=== PATIENT | female | born 1970 | race Caucasian/White ===

== ENCOUNTER 2017-04-17 09:00 | Day surgery (SDC) | payer OTHER ==
[~2017-04-17] VITALS: Ht 165.1 cm; Wt 90.7 kg
[~2017-04-17 09:00] MED LIST: K-TAB ER20 MEQ PO; LISINOPRIL-HCT1 EAC2 PO; NATURE-THROI81.25 MG PO
--- NOTE | 2017-04-17 14:01 | NUR ---
04/17/17 1400 Sruthi Carballo report from net sorter.
[2017-04-17] MEDS ORDERED: NORCO 5-325 TA1 EACH PO (16:10)
[2017-04-17] MEDS ORDERED: IBUPROFEN800 MG PO (16:11)
--- NOTE | 2017-04-17 16:13 | NUR ---
1450: PATIENT BACK IN DAY SURGERY ROOM FROM PACU. C/O PAIN 4/10, BUT DECLINES PAIN MEDICATION AT THIS TIME. ABDOMINAL SCOPE SITES X 3 WITH BANDAIDS, CDI. IV SITE WNL. SCDs ON. ICE WATER PLACED AT BEDSIDE. CALL LIGHT WITHIN REACH. AT BEDSIDE. 1550: PATIENT C/O 6/10 PAIN. MEDICATED WITH IV MORPHINE. THEN GIVEN JELLO AND CRACKERS TO TRY. TOLERATING WATER. VS CHECKED. CALL LIGHT WITHIN REACH. AT BEDSIDE.
--- NOTE | 2017-04-17 17:49 | NUR ---
AMB TO BR VOID 50 MLS WITH BLOOD, BLADDER SCANNED FRO 15MLS. CALL TO DR ROACH AND TO KEEP PT X2 HRS FOR MOR VOID.
--- NOTE | 2017-04-17 18:04 | NUR ---
TRANSFERRED TO RM 125 REPORT GIVEN TO DAVID REYNOSO NO QUESTIONS.
--- NOTE | 2017-04-18 14:19 | OR ---
[facility] [address] [place], [place] [address] Signed DATE OF OPERATION: 04/17/2017 SURGEON: Octavio Muir MD PREOPERATIVE DIAGNOSES: Pelvic pain, left ovarian mass. POSTOPERATIVE DIAGNOSES: Pelvic pain, left ovarian mass, tubal metaplasia. PROCEDURES: Laparoscopic left salpingo-oophorectomy and right salpingectomy. TECHNICAL INTERNSHIP: Dr. Kirk. ANESTHESIA: General. ESTIMATED BLOOD LOSS: 50 mL. COMPLICATIONS: None. DRAINS: None. FINDINGS: Cervix, thick, closed. Uterus, normal size and shape. Uterine cavity sounding approximately 8 cm. Anterior cul-de-sac was free of any endometriosis or adhesions. Posterior cul-de-sac was free of any endometriosis or adhesions. The left pelvic sidewall was free of any endometriosis or adhesions. However, the left sigmoid was slightly elevated and covering the left infundibulopelvic ligament. The left tube was normal in length and normal pink fimbriated end. Fimbriated end had small amount of metaplasia along the tube. Left ovary was only slightly enlarged, had cyst present on the posterior aspect, approximately 2 cm in diameter. The outer surface of the ovary appeared normal. The right pelvic sidewall appeared normal with no adhesions or lesions. The right tube was normal in length and normal pink fimbriated end, but a large amount of metaplasia along the middle and distal length of the tube. Right ovary is normal size Electronically Signed By: OCTAVIO MUIR MD 04/18/17 1419 PATIENT NAME: ERROL ROBERTS OPERATIVE REPORT DATE OF : 70 PHYSICIAN: OCTAVIO MUIR MD REPORT #: [id number] REPORT IS CONFIDENTIAL AND NOT TO BE RELEASED WITHOUT AUTHORIZATION [facility] [address] [place], [place] [address] Signed and shape without any evidence of endometriosis or adhesions. Rest of the pelvis was free of any masses or adhesions. DESCRIPTION OF PROCEDURE: The patient was brought into the operating room and placed in supine position. After adequate general anesthesia was obtained, she was placed in a dorsal lithotomy position. Prepped and draped in usual sterile fashion. A weighted speculum was placed in the vagina and the anterior lip of the cervix was grasped with an Allis clamp. Uterine cavity was sounded to 8 cm and then cervix serially dilated. A Hulka clamp was carefully induced in the endocervical canal into the uterine cavity, and then attached to the anterior lip of the cervix. The Allis clamp and weighted speculum were removed. Kern catheter was placed in the bladder. A small infraumbilical skin incision was made after injecting the area with 0.5% Marcaine with epinephrine. The subcutaneous tissue was dissected with Metzenbaum scissors. The fascia was identified, grasped with hemostats, elevated, and extended in a transverse fashion using Metzenbaum scissors. Retention stitches of 0-Vicryl suture was placed above and below the incision. The abdominal musculature and peritoneum were bluntly opened with finger dissection. An S retractor was inserted into the incision and spun in 360-degree fashion and no masses and good placement in the abdominal cavity. The Lauren cannula and sleeve were entered the abdomen along the side of the S retractor, and the S retractor removed. The sleeve was tied in place with the retention stitches and trocar removed. The laparoscopic video attachment entered the abdomen under direct visualization. Carbon dioxide was used as distending medium. The above findings were noted. On the left side just below the level of the umbilicus approximately 10 cm lateral to the midline. A small skin incision was made with a scalpel after transilluminating the abdominal wall to avoid any vessels injecting the area with 0.5% Marcaine with epinephrine. A 5 mm ablated trocar and sleeve entered the abdomen under direct visualization. The trocar was removed and blunt probe inserted. On the right side, same thing was done just below the level of the umbilicus approximately 10 cm lateral to the midline. A 0.5% Marcaine with epinephrine was used to inject the skin after transilluminating the abdominal wall. A small skin incision was made with a scalpel and then a 5-mm ablated trocar and sleeve entered the abdomen under direct visualization. The trocar was removed and a 2nd blunt probe inserted. The above findings were confirmed. The LigaSure [place] bipolar cautery forceps brought in the operating were placed through the sleeve. The peritoneum above elevated sigmoid colon was carefully grasped, cauterized, and cut dropping the sigmoid away from the infundibulopelvic ligament. Care was taken to stay well away from the bowel itself. Good hemostasis was noted. At this point, the ligature forceps were used to cauterize the infundibulopelvic ligament in several places, and the ligament then cut and Endoloop of 0-Monocryl was then placed around the infundibulopelvic ligament pedicle and tightened in place. The tag was cut with laparoscopic scissors. Good hemostasis was noted. The Electronically Signed By: OCTAVIO MUIR MD 04/18/17 1419 PATIENT NAME: ERROL ROBERTS OPERATIVE REPORT DATE OF : 70 PHYSICIAN: OCTAVIO MUIR MD REPORT #: [id number] REPORT IS CONFIDENTIAL AND NOT TO BE RELEASED WITHOUT AUTHORIZATION [facility] [address] [place], [place] [address] Signed remainder of the left tube and ovary were cauterized down toward the utero-ovarian ligament and fallopian tube, and the fallopian tube and utero-ovarian ligament were individually cauterized in several places and cut freeing the tube and ovary. A 5-mm laparoscope was placed in the side port and Endopouch placed through the infraumbilical 10-mm port in the left tube and ovary placed in the Endopouch, and the pouch pulled up to the infraumbilical incision. The Lauren sleeve was removed. The bag with the tube and ovary pulled out through the incision. The Lauren cannula and sleeve were placed back into the same fashion and again tied in place. Laparoscope was reintroduced into the abdomen. The entire pelvis was irrigated, noted to have good hemostasis. Because the right tube had significant amount of metaplasia, which did appear abnormal, this decided to remove the right fallopian tube, so the LigaSure forceps were used to cauterize the mesosalpinx along the length of the tube until reaching the proximal tube making sure to get past all the metaplasia and the tube cauterized in several places and then cut. The tube was pulled out through the midline port in one piece with slight amount of bleeding along this edge and right at the tubal junction and this was controlled by using the [place] bipolar forceps to cauterize the edges of the dissection. The entire pelvis was irrigated and noted to have good hemostasis. Because of the raw nature of the dissection and the slight oozing from the right side, it was decided to place some Evicel along the dissection edges and this was done, again good hemostasis was noted. The gas was allowed to escape lowering in the pressure and the areas of dissection were examined and noted to have good hemostasis under low pressure. All instruments were removed. The gas allowed to escape and the final sleeve removed. The infraumbilical incision was closed using a running stitch of oh Vicryl suture with 2 retention stitches tied together for further support. The 3 skin incisions were closed using in the subcuticular stitches of 4-0 Vicryl suture. Hulka clamp and Kern were removed. The patient tolerated the procedure well, went to recovery room in good condition. The sponge, needle, and instrument count correct at end of procedure. The left tube and ovary and the right fallopian tube were all sent to Pathology for identification. Octavio Muir MD MJB/MODL /[id number] Electronically Signed By: OCTAVIO MUIR MD 04/18/17 1419 PATIENT NAME: ERROL ROBERTS OPERATIVE REPORT DATE OF : 70 PHYSICIAN: OCTAVIO MUIR MD REPORT #: [id number] REPORT IS CONFIDENTIAL AND NOT TO BE RELEASED WITHOUT AUTHORIZATION [facility] [address] [place] [address] Signed cc: Berlin Kaur MD Electronically Signed By: OCTAVIO MUIR MD 04/18/17 1419 PATIENT NAME: ERROL ROBERTS OPERATIVE REPORT DATE OF : 70 PHYSICIAN: OCTAVIO MUIR MD REPORT #: [id number] REPORT IS CONFIDENTIAL AND NOT TO BE RELEASED WITHOUT AUTHORIZATION
== END 2017-04-17 19:58 | disposition home or self-care (01) ==
LOC: DS 09:00 → OPS 09:00 → DS 10:45 → OPS 12:30 → DS 12:30 → MS 18:04 → OPS 19:58
PROVIDERS: General Practice
PROC: 0UB74ZZ Excision of Bilateral Fallopian Tubes, Percutaneous Endoscopic Approach (ICD-10-PCS; 2017-04-17)
PROC: 0UB14ZZ Excision of Left Ovary, Percutaneous Endoscopic Approach (ICD-10-PCS; principal; 2017-04-17 12:30)
DX: D27.1 Benign neoplasm of left ovary (principal); N83.12 Corpus luteum cyst of left ovary; N83.8 Other noninflammatory disorders of ovary, fallopian tube and broad ligament; I10 Essential (primary) hypertension; E89.0 Postprocedural hypothyroidism; F32.9 Major depressive disorder, single episode, unspecified; Z98.890 Other specified postprocedural states; Z88.0 Allergy status to penicillin; Z79.899 Other long term (current) drug therapy
CPT/HCPCS: 00840; 93005; 93010; J0330; J1100; J1885; J2250; J2270; J2405; J2704; J2710; J2765; J3010; J7120

== ENCOUNTER 2017-11-10 02:13 | Emergency (ER) | payer OTHER ==
[~2017-11-10] VITALS: Ht 165.1 cm; Wt 88.5 kg
[~2017-11-10 02:13] MED LIST changes: +IBUPROFEN800 MG PO; +NORCO 5-325 TA1 EACH PO
--- NOTE | 2017-11-10 21:11 | EKG ---
[facility] [address] [facility] [place], [place] [address] Signed Sinus tachycardia Otherwise normal ECG When compared with ECG of 10-APR-2017 16:02, No significant change was found Confirmed by GIA GIRON MD ([id number]) on 11/10/2017 9:10:50 PM Electronically Signed By: GIA GIRON MD 11/10/17 211 PATIENT NAME: ERROL ROBERTS Electrocardiogram DATE OF : 70 PHYSICIAN: GIA GIRON MD REPORT #: [id number] REPORT IS CONFIDENTIAL AND NOT TO BE RELEASED WITHOUT AUTHORIZATION
== END 2017-11-10 04:16 | disposition home or self-care (01) ==
LOC: ED 02:13
DX: R00.2 Palpitations (principal); I10 Essential (primary) hypertension; E03.9 Hypothyroidism, unspecified; Z88.5 Allergy status to narcotic agent; Z88.0 Allergy status to penicillin; Z88.8 Allergy status to other drugs, medicaments and biological substances; Z79.899 Other long term (current) drug therapy
CPT/HCPCS: 80048; 85025; 93005; 93010; 99283